=== PATIENT | female | born 1960 | race Caucasian/White ===

== ENCOUNTER → 2017-01-08 | Day surgery (SDC) | payer MEDICARE ==
[~2017-01-08] MED LIST: ACETAMINOPHEN/HYDROcodone 325 MG/5 MG TAB ONE; APREPITANT 40 MG CAP ONE; BUPIVACAINE/EPINEPHRINE 0.25% 50 ML VIAL ONE; BUPIVACAINE/EPINEPHRINE 0.5% PF 30 ML VIAL ONE; ISOSULFAN BLUE 50 MG/5 ML VIAL SQ ONE; LACTATED RINGER'S 1000 ML INJ 1,000 ML ONE; MIDAZOLAM HCL 2 MG/2 ML VIAL ONE; MORPHINE SULFATE 4 MG/ML INJ ONE; ONDANSETRON HCL 4 MG/2 ML VIAL IV PUSH ONE; PROPOFOL 200 MG/20 ML AMP IV ONE; ceFAZolin 2 GM PREMIX 50 ML ONE
--- NOTE | 2017-01-08 13:13 | TN ---
cc: INGRID OLIVAREZ M.D. DATE OF SURGERY: 01/08/2017 PREOPERATIVE DIAGNOSIS Left breast multifocal invasive lobular carcinoma. POSTOPERATIVE DIAGNOSIS Left breast multifocal invasive lobular carcinoma. PROCEDURE 1. Right prophylactic mastectomy. 2. Left simple mastectomy with left axillary sentinel lymph node biopsy and placement of PRIYANKA dressing. SURGEON Dr. Ingrid Olivarez COAL CRUSHER OPERATOR Nelly Baker, [facility] ANESTHESIA General. INDICATIONS This is a very pleasant 56-year-old woman who recently noted palpable lumps in her left breast. She underwent diagnostic imaging and ultrasound-guided core biopsy x2 resulting in a diagnosis of multifocal invasive lobular carcinoma of the left breast, moderately differentiated, ER and OH strongly positive, HER-2/ariela negative. She elected to pursue bilateral mastectomy. INTRAOPERATIVE FINDINGS Right breast with short stitch superior anterior, long stitch lateral posterior, sent to pathology. Left breast similarly removed and sent to pathology. Left axillary sentinel lymph nodes 1, 2 and 3 removed and sent to pathology. #1 had an additional non-sentinel node attached to it. There was an additional non-sentinel node removed and sent to pathology. ESTIMATED BLOOD LOSS Less than 20 mL. DRAINS 10-[place] fluted drain on each side. Priyanka dressing applied over entire incision. DESCRIPTION OF PROCEDURE IN DETAIL The patient was identified as Gwen Hughes, taken to the operating room and placed in the supine position. Sequential compression devices were placed on bilateral lower extremities. Following induction of adequate general endotracheal anesthesia a timeout procedure was performed. Following completion of the timeout procedure to everyone's satisfaction within the room, the Navigator probe was used and increased uptake in the axilla was easily identified. Blue dye was not injected. The chest and axilla bilaterally were prepped and draped in the usual sterile fashion with Betadine. A proposed symmetrical elliptical incision was made with a marking pen. Attention was turned first to the right side. The incision was carried out with a scalpel and hemostasis controlled with electrocautery. Superior and inferior breast skin flaps were developed with electrocautery. The breast was removed from the underlying pectoralis muscle including the fascia with the specimen from superomedial to inferolateral. The specimen was removed and marked with silk suture as discussed above and passed off the field for pathologic evaluation. The wound was irrigated copiously with saline. A 10-[place] fluted drain was passed into the wound through a separate stab incision inferomedially. The drain was held in place with a 3-0 nylon drain stitch. The wound was closed in two layers with 3-0 Vicryl and 4-0 Monocryl. Attention was then turned to the left side. The incision was carried out with a scalpel and hemostasis controlled with electrocautery. The superior and inferior breast flaps were developed with electrocautery. The breast was removed from the underlying pectoralis muscle including fascia with the specimen from superomedial to inferolateral. The specimen was marked and sent to pathology as discussed above. Attention was then turned to the axilla. Using the Navigator probe the axillary area was probed and increased uptake was identified. [place] nodes were removed from surrounding tissue using a combination of blunt dissection and electrocautery on small bleeding points and small hemoclips on lymphovascular structures. Care was taken to preserve intercostobrachial nerves. The specimens were removed in their entirety and 10-second counts performed. The specimens were passed off the field for pathologic evaluation. [place] node #1 had a simple silk suture, sentinel node #2 had a loop silk suture and sentinel node #3 had three hemoclips. The non-sentinel node had nothing placed on it to identify it. [place] node #1 was attached to an adjacent smaller node that did not have increased uptake. It appeared that five total nodes were removed. The wound was irrigated copiously with saline. There was no evidence of bleeding. 10 cc of local anesthetic was placed within the axillary dissected area. Through a separate stab incision inferomedially a 10-[place] fluted drain was placed into the wound with the tip of the drain up into the axilla. The drain was held in place with a 3-0 nylon drain stitch. The wound was closed in two layers with 3-0 Vicryl and 4-0 Monocryl. Dressing was applied with Mastisol and a PRIYANKA dressing. Antimicrobial disks were placed around the drain exit site and held in position with a clear plastic occlusive drain dressing. The PRIYANKA dressing was attached, had no evidence of leak. The patient had 25 cc of local anesthetic placed in each drain and the drains were connected to a drainage bulb but not activated. The patient tolerated the procedures without apparent complication. Sponge, needle and instrument counts were correct at the end of the case. This procedure was assisted by my nurse practitioner. The skill set of an RECEIVING SUPERVISOR was medically necessary to provide excellent retraction and facilitate efficiency in the operative procedure. The surgical forceps fabricator was at the back table providing appropriate instrumentation, while the nurse practitioner was directly assisting me through the entirety of the surgery. MD POONAM Jones/BENSON /12:47 PM /12:59 PM [place]
== END | disposition home or self-care (01) ==
LOC: ESDC 06:03
PROVIDERS: ATTEND Surgery Trauma Surgery
DX: C50.912 Malignant neoplasm of unspecified site of left female breast (principal)
CPT/HCPCS: 00400; 01610; 19303; 38525; J0690; J2250; J2270; J2405; J3010; J7120; J8501; Q9968